=== PATIENT | female | born 1990 | race Caucasian/White ===

== ENCOUNTER 2021-01-02 18:24 | Emergency (ER) | payer OTHER ==
[~2021-01-02 18:24] MED LIST: NORCO 5-325 TA1 EACH PO
[2021-01-02] MEDS ORDERED: BACITRACIN3.5 GM TOP (20:06)
== END 2021-01-02 20:30 | disposition home or self-care (01) ==
LOC: ER1 18:24
DX: S91.312A Laceration without foreign body, left foot, initial encounter (principal); W18.09XA Striking against other object with subsequent fall, initial encounter
CPT/HCPCS: 12001; 99283

== ENCOUNTER 2022-03-13 03:16 | Emergency (ER) | payer SELFPAY ==
[~2022-03-13 03:16] MED LIST changes: +BACITRACIN3.5 GM TOP
[2022-03-13] MEDS ORDERED: PEPCID AC20 MG PO (04:38)
[2022-03-13] MEDS ORDERED: PREDNISONE 20 M20 MG PO (04:38)
[2022-03-13] MEDS ORDERED: BENADRYL 50MG C50 MG PO (04:38)
== END 2022-03-13 04:50 | disposition home or self-care (01) ==
LOC: ER1 03:16
DX: L50.0 Allergic urticaria (principal); I10 Essential (primary) hypertension; Z79.899 Other long term (current) drug therapy
CPT/HCPCS: 96374; 96375; 99282; J1200; J2930

== ENCOUNTER 2022-04-17 06:47 | Emergency (ER) | payer OTHER ==
[~2022-04-17 06:47] MED LIST changes: +BENADRYL 50MG C50 MG PO; +PEPCID AC20 MG PO; +PREDNISONE 20 M20 MG PO
[2022-04-17] MEDS ORDERED: AMOX TR-K CLV1 EAC4 PO (07:31)
[2022-04-17] MEDS ORDERED: HYDROCODON-ACE1 EAC4 PO (07:32)
== END 2022-04-17 08:00 | disposition home or self-care (01) ==
LOC: ER1 06:47
DX: K02.9 Dental caries, unspecified (principal); I10 Essential (primary) hypertension
CPT/HCPCS: 99282